=== PATIENT | female | born 1980 | race Caucasian/White ===

== ENCOUNTER 2016-08-26 21:43 | Emergency (ER) | payer OTHER ==
[~2016-08-26] VITALS: Ht 167.6 cm; Wt 96.8 kg
[~2016-08-26 21:43] MED LIST: ALBU8.5H2 INHALATION; ERGO500029 PO; ESTR2TAB2 PO; FURO-129 PO; LEVO112T4 PO; LORA10TA73 PO; OMEG1CAP5 PO; PHEN37.53 PO; POLY17PO2 PO; POTA10CA42 PO; PROC25SU30 RC; PROG200C7 PO; RIZA10TA23 PO; TESTOSTERONE CRM; [UNRECOGNIZED DRUG - OTHER]
[2016-08-26 21:51] VITALS: BP 143/93; PULSE 78; RESP 18; O2SAT 100
--- NOTE | 2016-08-26 22:41 | ED.REPORT ---
HPI-Abd Pain F Under 40 Date of Service Aug 26, 2016 ED Provider: Jose Serrano MD 36 year old female with history of colitis, cholecystitis, cholecystectomy, and pancreatitis presents to ED complaining of constipation onset three days ago. She recently consulted with Dr. Meredith, GI, who thought that the condition was related to pancreatitis. She has been taking magnesium citrate and drinking MiraLAX for the last few days, but has had no bowel movements. Associated symptoms include back pain and nausea. She also describes feeling gas bubbles moving up her gastrointestinal tract. She is scheduled for upcoming stomach biopsy from her GI. Physical exercise has helped the patient achieve bowel movements in the past, so she has been exercising lately. Nursing Notes Stated Complaint: STOMACH PAIN Chief Complaint: Female Abdominal Pain Nursing Notes Reviewed: Yes Allergies: Coded Allergies: Sulfa (Sulfonamide Antibiotics) (Verified Allergy, Unknown, unk, 02/08/15) morphine (Verified Adverse Reaction, Unknown, migraine, 08/26/16) Uncoded Allergies: CURRANT (Allergy, Unknown, 08/26/16) Scheduled ([Testosterone Crm]) 0.5 % NEED SIG ([Herbal Drug Cap]) NO SIG INDICATED Cephalexin (Keflex) 500 Mg Capsule 500 MG PO TID Ergocalciferol (Vitamin D2) (Vitamin D2) 50,000 Unit Capsule 50,000 UNIT PO QW Estradiol (Estradiol) 2 Mg Tablet 3 MG PO DAILY Furosemide (Lasix) 20 Mg Tablet 20 MG PO DAILY Lactulose (Lactulose) 20 Gm/30 Ml Solution 20 GM PO [id number] Levothyroxine (Levothyroxine) 112 Mcg Tablet 112 MCG PO DAILY Loratadine (Claritin) 10 Mg Tablet 10 MG PO DAILY [place]-3 Fatty Acids/Fish Oil (Fish Oil 1,000 mg Capsule) 1 Each Capsule 2 EACH PO DAILY Phentermine (Phentermine) 37.5 Mg Tablet 37.5 MG PO QAM Phentermine (Phentermine) 37.5 Mg Tablet 18.75 MG PO QPM Polyethylene Glycol 3350 (Polyethylene Glycol 3350) 17 Gm Powd.pack 17 GM PO BID Potassium Chloride (Potassium Chloride) 10 Meq Capsule.er 10 MEQ PO DAILYWM TAKE WITH FOOD Progesterone,Micronized (Progesterone) 200 Mg Capsule 200 MG PO QPM Scheduled PRN Albuterol HFA (Proair HFA) 8.5 Gm Hfa.aer.ad 2 PUFFS INHALATION Q4H PRN PRN For Shortness of Breath Prochlorperazine Maleate (Compazine Suppository) 25 Mg Supp.rect 25 MG RC Q8 PRN PRN For Nausea/Vomiting Rizatriptan ODT (Maxalt POULTRY HUSBANDMAN) 10 Mg Tablet 10 MG PO [id number] PRN PRN Headache General Time Seen by MD: 22:38 Chief Complaint Constipation Hx Obtained From: Patient Arrived By: Walk-in Sudden in Onset?: No Onset Occurred: 3 days ago Symptom Duration: Since onset Progression since Onset: Unchanged Recent Healthcare: Recent doctor visit Similar Sx Previous: Yes Past Medical History Past Medical History Nephrolithiasis Pancreatitis Cholecystitis Colitis Reports: GERD Reports: Thyroid disease Past Surgical History Reports: Appendectomy, Cholecystectomy, Hysterectomy Smoking History Never Smoker Social History Alcohol Use: 1-3 per week Drug Use: Denies drug use Other Social History: Good social support, Local resident Occupation Stay at home mom Ambulatory Status Independent Review of Systems Review of Systems Note: Feeling bloated. GI: Reports: Abdominal pain, Constipation, Nausea Musculoskeletal: Reports: Back pain Complete sys rev & neg: except as marked. Physical Exam Initial Vital Signs Vital Signs (First) Date Time Temp Pulse Resp B/P Pulse Ox O2 Delivery O2 Flow Rate FiO2 08/26/17 21:51 36.1 78 18 143/93 100 Room Air Initial VS: Reviewed General/Constitutional: Awake, Alert Respiratory / Chest: Atraumatic, Breath sounds NL, Breath sounds = bilat, No respiratory distress, No rales, No rhonchi, No wheezing Cardiovascular: Heart rate NL, Regular rhythm, Heart sounds NL, No gallop, No murmurs, No rubs Abdomen: Atraumatic, Soft, Non-tender, No guarding, No rebound Slightly doughy, distended abdomen. Back: Atraumatic, Full range of motion Head / Eyes: Atraumatic, Normocephalic, PERRL, EOMI ENT: Atraumatic, Airway patent, Mucous membranes moist Skin: Atraumatic, Color NL, No rash, Warm, Dry Neurologic: Oriented X3, Speech NL, No motor deficits, No sensory deficits Neck: Atraumatic, Full range of motion Upper Extremity / MS: Atraumatic, Full range of motion Lower Extremity / Pelvis / MS: Atraumatic, Full range of motion Psychiatric: Affect NL, Mood NL Interpretation & Diagnostics Lab Results Interpretation Result Diagram: 08/26/16 2305 08/26/16 2305 Test 08/26/16 22:55 08/26/16 23:05 Urine Color Yellow (YELLOW) Urine Appearance Hazy (CLEAR,HAZY) Urine pH 5.5 (5.0-8.0) Urine Specific [place] 1.030 (1.003-1.035) Urine Protein Negativemg/dL (NEG,TRACE) Urine Glucose (UA) Negativemg/dL (NEGATIVE) Urine Ketones Negativemg/dL (NEGATIVE) Urine Occult Blood Negative (NEGATIVE) Urine Nitrite Negative (NEGATIVE) Urine Bilirubin Negative (NEGATIVE) Urine Urobilinogen Normalmg/dL (NORMAL) Urine Leukocyte Esterase Negative (NEGATIVE) Urine RBC 0-2/hpf (0-2) Urine WBC 6-10/hpf (0-5) Urine Epithelial Cells Moderate/hpf (NONE-MOD) Urine Crystals None seen (NONE SEEN) Urine Bacteria Moderate/hpf (NONE-FEW) Urine Hyaline Casts None/lpf (NONE) Urine Granular Casts None seen (NONE SEEN) Urine Waxy Casts None seen (NONE SEEN) Urine Red Blood Cell Casts None seen (NONE SEEN) Urine White Blood Cell Casts None seen (NONE SEEN) Urine Mucus Present (None Seen) Urine Trichomonas None seen (NONE SEEN) Urine Yeast None (NONE SEEN) Urinalysis Comment None Urine Culture Reflexed Indicated White Blood Count 6.5th/mm3 (3.8-10.1) Red Blood Count 4.36mil/mm3 (3.90-5.20) Hemoglobin 13.0g/dL (12.0-15.6) Hematocrit 38.2% (35.0-46.0) Mean Corpuscular Volume 87.6fL (81-100) Mean Corpuscular Hemoglobin 29.8pg (27.0-35.0) Mean Corpuscular Hemoglobin Concent 34.0% (32.0-37.0) Red Cell Distribution Width 12.4% (12.3-15.4) Platelet Count 232bil/L (150-400) Neutrophils (%) (Auto) 55.3% (40-74) Lymphocytes (%) (Auto) 33.0% (14-46) Monocytes (%) (Auto) 9.9% (4-12) Eosinophils (%) (Auto) 0.8% (0-5) Basophils (%) (Auto) 0.5% (0-3) Prothrombin Time 10.0sec (8.1-12.5) Prothromb Time International Ratio 0.94ratio Sodium Level 140mEq/L (134-144) Potassium Level 4.2mEq/L (3.5-5.2) Chloride Level 101mEq/L (97-108) Carbon Dioxide Level 26mmol/L (18-29) Blood Urea Nitrogen 18mg/dL (6-20) Creatinine 0.77mg/dL (0.57-1.00) Estimat Glomerular Filtration Rate 121mL/min (>59) Glucose Level 93mg/dL (60-99) Lactic Acid Level 1.2mmol/L (0.4-2.0) Calcium Level 9.1mg/dL (8.5-10.1) Magnesium Level 2.1mg/dL (1.6-2.6) Total Bilirubin 0.2mg/dL (0.0-1.2) Aspartate Amino Transf (AST/SGOT) 24U/L (0-50) Alanine Aminotransferase (ALT/SGPT) 49U/L (0-32) Alkaline Phosphatase 70U/L (25-150) Total Protein 6.9g/dL (6.4-8.4) Albumin 4.3g/dL (3.4-5.0) Lipase 44U/L (13-60) ECG Interpretation ECG Interpretation: Sinus rhythm. Rate is 72. Time: 23:03 Interpreted by: ED physician X-Ray Abdominal Interpretation enormous stool mass terminating at transverse ileus. Re-Eval/Medical Decision Med Decision/Clinical Course Med Decision/Clinical Course: 36-year-old with nonspecific colitis by history presents with constipation for three days. She has a benign exam, relatively benign labs, but an x-ray that shows substantial stool in the right colon. The left is relatively decompressed. However, there is no other evidence of obstruction. There is a mild ileus pattern. She is passing gas and does not appear to be obstructed. Begun with two Dulcolax suppositories and lactulose frequent dosing to clear out her right colon. Follow-up with PCP and with GI. Prompt return here if worsening despite treatment. Source of Hx: Old records Re-Evaluation/Progress : Time of Eval: 00:02 Re-Evaluation/Progress Note: Rechecked patient and explained test results. The plan for discharge is discussed. The pt understands and agrees with the plan. All questions are addressed at this time. Counseled Regarding: Diagnosis, Lab results, Need for follow-up, When/why to return to ED Discharge & Departure Primary Impression: Constipation Constipation type: unspecified constipation type Qualified Code: K59.00 - Constipation, unspecified Additional Impression: UTI (urinary tract infection) Urinary tract infection type: site unspecified Hematuria presence: without hematuria Qualified Code: N39.0 - Urinary tract infection, site not specified Disposition: Home Discharge Condition All VS Reviewed: Yes Condition: Stable Patient Instructions: Constipation (ED), Lactulose (By mouth) Call your doctor tomorrow to expedite referral to gastroenterology. When you get home, insert both Dulcolax suppositories in your rectum. Begin lactulose 2 tablespoons every 3-4 hours until you have 4-5 bowel movements per day for two days. Then you may stop. Return if worsening symptoms or any new symptoms of concern. He may call me zen with any questions. Number is [phone]. Referrals: Virginie Estrada PA-C (PCP) Ashutosh Attestation Portions of this note were transcribed by Dany Gordon and Chase Wilson. I, Dr. Serrano personally performed the history, physical exam and medical decision -making; I reviewed and confirmed the accuracy of the information in the transcribed note. Signed by: Dany Gordon and Ashutosh Biggs, 2016 and 00:49. copies to: Virginie Estrada PA-C, Christopher W MD Aug 26, 2016 22:41 Dany Gordon Aug 26, 2016 22:52 CHASE WILSON Aug 27, 2016 00:49
[2016-08-26] MEDS ORDERED: 0.9% Sodium Chloride 1,000 ML IV ONE (22:47)
[2016-08-26] MEDS ORDERED: Pantoprazole 4 mg/mL 10 mL Inj IVPUSH ONE (22:50)
[2016-08-26] MEDS ORDERED: Ondansetron 2 mg/mL 2 mL Inj IVPUSH ONE (22:50)
[2016-08-26 23:16] LABS: BASOPHILS % (AUTO) 0.5 % (0-3); EOSINOPHILS % (AUTO) 0.8 % (0-5); MONOCYTES % (AUTO) 9.9 % (4-12); Mean Corpuscular Hemoglobin 29.8 pg (27.0-35.0); Mean Corpuscular Volume 87.6 fL (81-100); NEUTROPHILS % (AUTO) 55.3 % (40-74); Platelet Count 232 bil/L (150-400)
[2016-08-26 23:20] LABS: APPEARANCE,URINE HAZY (CLEAR,HAZY); COLOR,URINE YELLOW (YELLOW); PH,URINE 5.5 (5.0-8.0)
[2016-08-26 23:21] LABS: OCCULT BLOOD,URINE NEGATIVE (NEGATIVE); UROBILINOGEN,URINE NORMAL (NORMAL)
[2016-08-26 23:32] LABS: INR 0.94 ratio
[2016-08-26 23:47] LABS: Magnesium 2.1 mg/dL (1.6-2.6)
[2016-08-27] MEDS ORDERED: LACT10SO60 PO (00:13)
[2016-08-27] MEDS ORDERED: CEPH-512 PO (00:18)
[2016-08-27] MEDS ORDERED: Lactulose 20 Gm/30 mL 30 mL Syrup PO ONE (00:25)
[2016-08-27 00:54] VITALS: BP 116/77; PULSE 76; RESP 16; O2SAT 100
--- NOTE | 2016-08-27 08:44 | DRSVH ---
PROCEDURE: X-RAY ACUTE ABDOMINAL SERIES ([id number]) INDICATIONS: constipation, Rule Out obstruction TECHNIQUE: One view chest and two views of the abdomen were acquired. COMPARISON: None. FINDINGS: Surgical changes and devices: None. Chest: Lungs are clear. Heart size is normal. No pleural effusions. No pneumoperitoneum. Abdomen: Moderate stool present primarily within the right colon. Bowel gas pattern is normal. No s uspicious calcifications. Visualized solid organ contours appear normal. Bones: No suspicious bony lesions. IMPRESSION: No bowel obstruction. Moderate stool. Dictated by: Vance Bhatti M.D. on 08/27/2016 at 8:41 Approved by: Vance Bhatti M.D. on 08/27/2016 at 8:43
== END 2016-08-27 00:55 | disposition home or self-care (01) ==
LOC: SED 21:43
DX: K59.00 Constipation, unspecified (principal); N39.0 Urinary tract infection, site not specified; K21.9 Gastro-esophageal reflux disease without esophagitis; E07.9 Disorder of thyroid, unspecified; Z87.19 Personal history of other diseases of the digestive system; Z90.49 Acquired absence of other specified parts of digestive tract; Z88.2 Allergy status to sulfonamides; Z88.5 Allergy status to narcotic agent
CPT/HCPCS: 36415; 74022; 80053; 81000; 83605; 83690; 83735; 85025; 85610; 87086; 87088; 93005; 96361; 96374; 96375; 99285; J2405; J7030

== ENCOUNTER 2016-08-28 23:59 | Emergency (ER) | payer OTHER ==
[~2016-08-28 23:59] MED LIST changes: +CEPH-512 PO; +LACT10SO60 PO
--- NOTE | 2016-08-29 00:08 | ED.REPORT ---
HPI-General Illness Date of Service Aug 29, 2016 ED Provider: Dr. Jose Serrano MD A 36 year old female with history of GERD, nephrolithiasis, pancreatitis, and colitis presents to the ED complaining of abdominal pain that began earlier this evening. Patient was seen in the ED on 08/26 for constipation. She was discharged in good condition with Dulcolax and lactulose and has been taking the medication as prescribed. Patient was contacted earlier this evening and reports that she has been passing "brownish water" but no solid stool. She also reported continued nausea and a "cold" sensation in her throat. Initially, she did not feel that she needed to be seen tonight, but became concerned when her symptoms did not subside. Patient has an appointment with a GI specialist for next . She denies any fever. Nursing Notes Stated Complaint: ABDOMINAL PAIN Nursing Notes Reviewed: Yes Allergies: Coded Allergies: Sulfa (Sulfonamide Antibiotics) (Verified Allergy, Unknown, unk, 08/29/16) morphine (Verified Adverse Reaction, Unknown, migraine, 08/29/16) Uncoded Allergies: CURRANT (Allergy, Unknown, 08/26/16) Scheduled ([Testosterone Crm]) 0.5 % NEED SIG ([Herbal Drug Cap]) NO SIG INDICATED Cephalexin (Keflex) 500 Mg Capsule 500 MG PO TID Ergocalciferol (Vitamin D2) (Vitamin D2) 50,000 Unit Capsule 50,000 UNIT PO QW Estradiol (Estradiol) 2 Mg Tablet 3 MG PO DAILY Furosemide (Lasix) 20 Mg Tablet 20 MG PO DAILY Lactulose (Lactulose) 20 Gm/30 Ml Solution 20 GM PO [id number] Levothyroxine (Levothyroxine) 112 Mcg Tablet 112 MCG PO DAILY Loratadine (Claritin) 10 Mg Tablet 10 MG PO DAILY [place]-3 Fatty Acids/Fish Oil (Fish Oil 1,000 mg Capsule) 1 Each Capsule 2 EACH PO DAILY Phentermine (Phentermine) 37.5 Mg Tablet 37.5 MG PO QAM Phentermine (Phentermine) 37.5 Mg Tablet 18.75 MG PO QPM Polyethylene Glycol 3350 (Polyethylene Glycol 3350) 17 Gm Powd.pack 17 GM PO BID Potassium Chloride (Potassium Chloride) 10 Meq Capsule.er 10 MEQ PO DAILYWM TAKE WITH FOOD Progesterone,Micronized (Progesterone) 200 Mg Capsule 200 MG PO QPM Scheduled PRN Albuterol HFA (Proair HFA) 8.5 Gm Hfa.aer.ad 2 PUFFS INHALATION Q4H PRN PRN For Shortness of Breath Prochlorperazine Maleate (Compazine Suppository) 25 Mg Supp.rect 25 MG RC Q8 PRN PRN For Nausea/Vomiting Rizatriptan ODT (Maxalt HABITAT MANAGEMENT COORDINATOR) 10 Mg Tablet 10 MG PO [id number] PRN PRN Headache General Time Seen by MD: 00:08 Chief Complaint Abdominal pain Hx Obtained From: Patient Arrived By: Walk-in Sudden in Onset?: No Onset Occurred: 5 - 8 hours ago Symptom Duration: Since onset Location: : Abdomen Quality: Cramping Radiation: : Does not radiate Severity: Current: Moderate Severity: Maximum: Moderate Associated with: Reports: Abdominal pain, Nausea, Denies: Fever Pertinent Negative: Pt denies other symptoms Recent Healthcare: No recent doctor visit, Recent hospitalization Past Medical History Past Medical History Nephrolithiasis Pancreatitis Cholecystitis Colitis Reports: GERD Reports: Thyroid disease Past Surgical History Reports: Appendectomy, Cholecystectomy, Hysterectomy Smoking History Never Smoker Social History Alcohol Use: 1-3 per week Drug Use: Denies drug use Other Social History: Good social support, Local resident 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 Physical Exam Vital Signs Vital Signs Date Time Temp Pulse Resp B/P Pulse Ox O2 Delivery O2 Flow Rate FiO2 08/29/16 00:13 36.2 70 14 119/57 98 Room Air Initial VS: Reviewed Neck: Supple, Non-tender, Full range of motion Extremities: Vascular intact, Neuro intact, No swelling, No tenderness Skin: Warm, Dry, No cyanosis Neurologic: Alert, Oriented, Nonfocal Psychiatric: Mood/affect normal, Behavior normal, Normal thought content General/Constitutional: Awake, Alert Head / Eyes: Atraumatic, Normocephalic Respiratory / Chest: Atraumatic, No respiratory distress Abdomen: Atraumatic, Soft, Non-tender, BS normoactive ABDOMEN: Bloated Interpretation & Diagnostics 08/26 ABDOMINAL X-RAY Read by Radiology IMPRESSION: No bowel obstruction. Moderate stool. Dictated by: Vance Bhatti M.D. on 08/27/2016 at 8:41 X-Ray Abdominal Interpretation IMPRESSION: No evidence of obstruction Interpretation / Wet Read by: Wet read ED physician Re-Eval/Medical Decision Med Decision/Clinical Course 36-year-old with abdominal bloating, recent visit here with right sided obstipation noted, now passing brown water after multiple doses of lactulose. Repeat of her x-ray tonight shows that she is mobilized and basically eliminated the large amount of solid stool on the right, and all of this is probably accounted for by her liquidy stool. In any case, she is clearly not obstructed. She has no significant pain. She is scheduled for follow-up with gastroenterology, with plans for endoscopy. There is some concern about colitis, but not of her output is been bloody, and she has not had any signs of systemic fever or other symptoms of concern. She is discharged now in stable condition, with instructions to stop the lactulose, begin light clear liquid progressive diet, and follow up with her doctors as scheduled. Time of Eval: 00:28 Patient Status: Condition improved Re-Evaluation/Progress Note: Patient is rechecked. She is informed of her X-ray results and diagnosis. All of the patient's questions are addressed. She understands and agrees with the treatment plan. Counseled Regarding: Diagnosis, Need for follow-up, When/why to return to ED Discharge & Departure Primary Impression: Ileus Additional Impression: Constipation Constipation type: unspecified constipation type Qualified Code: K59.00 - Constipation, unspecified Disposition: Home Discharge Condition All VS Reviewed: Yes Condition: Stable Patient Instructions: Acute Abdominal Pain (ED), Constipation (ED) Additional Instructions: Follow-up with gastroenterology as planned. You can stop the lactulose. Begin light diet with soup since discharge she, easily digested foods. Advance slowly as tolerated. Return any time for new symptoms of concern. Referrals: Virginie Estrada PA-C (PCP) Scribe Attestation Portions of this note were transcribed by Sona Phillips. I, Dr. Serrano personally performed the history, physical exam and medical decision-making; I reviewed and confirmed the accuracy of the information in the transcribed note. Signed by: Ashutosh Chowdary, 08/29/16 0100. copies to: Virginie Estrada PA-C, Christopher W MD Aug 29, 2016 00:08 SONA PHILLIPS Aug 29, 2016 00:24
[2016-08-29 00:13] VITALS: BP 119/57; PULSE 70; RESP 14; O2SAT 98
--- NOTE | 2016-08-29 15:14 | DRSVH ---
PROCEDURE: X-RAY ABDOMEN WITH ERECT AND/OR DECUBITUS VIEWS ([id number]) INDICATIONS: r/o obstruction TECHNIQUE: 2 views of the abdomen were acquired. COMPARISON: [facility], CR, XR ABD ACUTE SERIES 3VW, 08/26/2016, 23:07. [facility], CR, XR ABD AP 1VW, 12/03/2015, 11:35. FINDINGS: Surgical changes and devices: None. Bowel: No pneumoperitoneum. There is abundant colonic gas. There is paucity of small bowel gas. Mult iple small air-fluid levels are noted in the right lower quadrant. Soft tissues: No masses; visualized solid organ contours appear normal in size. No suspicious abdom inal calcifications. Bones: No suspicious bony abnormalities. IMPRESSION: Nonspecific bowel gas pattern. Cannot rule out partial small bowel obstruction. Dictated by: Bacilio Pulido M.D. on 08/29/2016 at 9:30 Approved by: Bacilio Pulido M.D. on 08/29/2016 at 9:33
== END 2016-08-29 00:34 | disposition home or self-care (01) ==
LOC: SED 23:59
DX: K56.7 Ileus, unspecified (principal); K59.00 Constipation, unspecified; R10.9 Unspecified abdominal pain; R11.0 Nausea; K21.9 Gastro-esophageal reflux disease without esophagitis; Z88.2 Allergy status to sulfonamides; Z88.5 Allergy status to narcotic agent